=== PATIENT | female | born 1965 | race Caucasian/White ===

== ENCOUNTER → 2017-01-25 | Outpatient (REF) | payer OTHER | LOC: M LAB REF 14:02 | PROVIDERS: ATTEND Family Medicine | DX: E78.5 Hyperlipidemia, unspecified (principal) ==

== ENCOUNTER 2017-08-18 08:05 | Day surgery (SDC) | payer OTHER ==
[~2017-08-18 08:05] MED LIST: LIDOCAINE 2% MDV 20 ML VIAL As Ordered; PROPOFOL 200 MG/20 ML VIAL As Ordered
[2017-08-18] MEDS: NS 1,000 ML IV (08:15)
== END 2017-08-18 09:57 | disposition home or self-care (01) ==
LOC: M OPP 08:05
DX: Z12.11 Encounter for screening for malignant neoplasm of colon (principal); K64.1 Second degree hemorrhoids; E78.5 Hyperlipidemia, unspecified; E11.9 Type 2 diabetes mellitus without complications; F41.9 Anxiety disorder, unspecified; Z79.84 Long term (current) use of oral hypoglycemic drugs; Z79.899 Other long term (current) drug therapy; Z80.8 Family history of malignant neoplasm of other organs or systems
CPT/HCPCS: 45378

== ENCOUNTER → 2017-11-04 | Outpatient (CLI) | payer OTHER | LOC: M RAD 20:13 | DX: S59.902A Unspecified injury of left elbow, initial encounter (principal); X58.XXXA Exposure to other specified factors, initial encounter; Y92.9 Unspecified place or not applicable | CPT/HCPCS: 73080 ==

== ENCOUNTER → 2018-11-11 | Outpatient (REF) | payer OTHER ==
[~2018-11-11] MED LIST changes: +CITA40TA6 PO; -LIDOCAINE 2% MDV 20 ML VIAL As Ordered; +LIPI10TA PO; +METF500T13 PO; -PROPOFOL 200 MG/20 ML VIAL As Ordered
== END ==
LOC: M LAB REF 17:59
PROVIDERS: ATTEND Nurse Practitioner Family
DX: R30.0 Dysuria (principal)

== ENCOUNTER → 2019-11-06 | Outpatient (REF) | payer OTHER | LOC: M WUC 10:00 | PROVIDERS: ATTEND Physician Assistant | DX: N30.01 Acute cystitis with hematuria (principal) ==

== ENCOUNTER → 2020-07-10 | Outpatient (CLI) | payer OTHER ==
--- NOTE | 2020-07-10 10:25 | REPMRS ---
Patient History The patient states she has not had a clinical breast exam in over a year. Family history of breast cancer at age 75 in mother. Took hormonal contraceptives for 22 years. Tomosynthesis is performed. Volpara breast density is b. [facility] lifetime risk of breast cancer 16.2%. Moderna vaccine #1 02/28/20 left arm #2 03/26/20 left arm. Pt unable to tolerate compression, best images possible. Patient states no breast complaints today. Patient has signed MRS History Sheet. Digital Woman Screen Mammo: July 10, 2020 - Exam #: [id number] Bilateral CC and MLO view(s) were taken. Technologist: RT Anna Marie Prior study comparison: December 13, 2014, digital woman screen mammo performed at [facility]. July 25, 2013, digital woman screen mammo performed at [facility]. FINDINGS: There are scattered fibroglandular densities. There has been no change in the appearance of the mammogram from the prior studies. There is a mild amount of residual fibroglandular tissue which is fairly symmetric. There is no interval development of dominant mass, architectural distortion, or clustered microcalcification suggestive of malignancy. No significant changes when compared with prior studies. Assessment: BI-RADS/ACR category 1 mammogram. Negative Mammogram. Recommendation Routine screening mammogram in 1 year (for women over age 40). This mammogram was interpreted with the aid of an FDA-approved computer-aided dectection system. Electronically Signed By: Trino Charles MD 07/10/20 1991
== END ==
LOC: M WHC 06:50
PROVIDERS: ATTEND Family Medicine
DX: Z12.31 Encounter for screening mammogram for malignant neoplasm of breast (principal); Z80.3 Family history of malignant neoplasm of breast

== ENCOUNTER → 2021-02-05 | Outpatient (REF) | payer OTHER ==
[2021-02-05 22:20] LABS: % LABILE ALKALINE PHOSPHATASE 57.14 %
== END ==
LOC: M LAB REF 16:36
PROVIDERS: ATTEND Family Medicine
DX: R74.01 Elevation of levels of liver transaminase levels (principal)

== ENCOUNTER → 2021-04-03 | Outpatient (CLI) | payer OTHER | LOC: M RAD 07:24 | PROVIDERS: ATTEND Family Medicine | DX: R74.01 Elevation of levels of liver transaminase levels (principal); R10.11 Right upper quadrant pain; K76.89 Other specified diseases of liver ==

== ENCOUNTER → 2021-08-21 | Outpatient (CLI) | payer OTHER | LOC: M WHC 07:35 | PROVIDERS: ATTEND Family Medicine | DX: R74.01 Elevation of levels of liver transaminase levels (principal); K76.0 Fatty (change of) liver, not elsewhere classified ==

== ENCOUNTER → 2022-06-09 | Outpatient (REF) | payer OTHER ==
[2022-06-09 13:32] LABS: PTH INTACT 69.9 PG/ML (18.5-88.0)
== END ==
LOC: M LAB REF 12:11
PROVIDERS: ATTEND Family Medicine
DX: E83.51 Hypocalcemia (principal); R74.8 Abnormal levels of other serum enzymes

== ENCOUNTER → 2022-07-13 | Outpatient (CLI) | payer OTHER | LOC: M WHC 10:35 | PROVIDERS: ATTEND Family Medicine | DX: Z12.31 Encounter for screening mammogram for malignant neoplasm of breast (principal) ==

== ENCOUNTER → 2023-07-27 | Outpatient (CLI) | payer OTHER | LOC: M WHC 07:08 | PROVIDERS: ATTEND Family Medicine | DX: Z12.31 Encounter for screening mammogram for malignant neoplasm of breast (principal); R92.313 Mammographic fatty tissue density, bilateral breasts ==

== ENCOUNTER → 2024-09-13 | Outpatient (CLI) | payer OTHER | LOC: M WHC 06:58 | PROVIDERS: ATTEND Family Medicine | DX: Z12.31 Encounter for screening mammogram for malignant neoplasm of breast (principal) ==